=== PATIENT | female | born 1985 | race Caucasian/White ===

== ENCOUNTER 2022-11-04 09:58 | Outpatient (CLI) | payer BC, SELFPAY ==
[2022-11-04 14:27] LABS: Strep A DNA Probe* NOT DETECTED (Not Detectd)
[2022-11-04 14:38] LABS: SARS PCR* Negative SARS-CoV-2 (Negative)
== END 2022-11-04 09:59 | disposition home or self-care (01) ==
PROVIDERS: PCP Family Medicine; Visit Provider Nurse Practitioner Family
DX: J02.9 Acute pharyngitis, unspecified (principal); J06.9 Acute upper respiratory infection, unspecified
CPT/HCPCS: 87635; 87651

== ENCOUNTER 2023-02-23 09:53 | Outpatient (CLI) | payer BC, SELFPAY | END 2023-02-23 09:54 | disposition home or self-care (01) | PROVIDERS: PCP Family Medicine; Visit Provider Registered Nurse | DX: Z01.419 Encounter for gynecological examination (general) (routine) without abnormal findings (principal); R63.5 Abnormal weight gain; R53.83 Other fatigue; Z13.6 Encounter for screening for cardiovascular disorders | CPT/HCPCS: 80053; 80061; 84443 ==

== ENCOUNTER 2023-03-28 09:32 | Outpatient (CLI) | payer BC, SELFPAY | END 2023-03-28 09:33 | disposition home or self-care (01) | LOC: NFLDREF 04-01 11:57 | PROVIDERS: PCP Family Medicine; Referring Provider Family Medicine; Visit Provider Registered Nurse | DX: R74.8 Abnormal levels of other serum enzymes (principal) | CPT/HCPCS: 84450; 84460 ==

== ENCOUNTER 2023-12-07 15:17 | Outpatient (CLI) | payer BC, SELFPAY ==
--- OUTSIDE RECORDS SUMMARY | 2023-12-07 15:21 | XMS_ITS | Clinical Summary ---
Author Organization [facility] Address [place], [place] [address] Care Team Providers Care Computer Information Science Professor Name Role Phone , No Primary Primary Care Provider Unavailabl e , No Primary Unavailable Unavailable Allergies Active Allergy Reactions Criticality Noted Date Comments Unlisted Allergen (Include Detail In Comments) 08/07/2008 Seasonal- pollens, molds Medications No known medications Immunizations Name Administration Dates Next Due COVID-19 vaccine (Moderna 10 0mcg/0.5mL) PAWEL BARILLAS 09/16/2020,08/19/2020 Human Papilloma Virus Vaccine 12/02/2008, 009,05/29/2007 10/07/2008 Td (Age >=7 Years) 03/24/2006 Tdap 08/07/2008 Family History Medical History Relation Name Comments Good Health Father Good Health Mother Relation Name Status Comments Father Alive Mother Alive Social History Tobacco Use Types Packs/Day Years Used Date Smoking Tobacco: Never Alcohol Use Standard Drinks/Week Comments Yes 0 (1 standard drink = 0.6 oz pur e alcohol) social Sex and Gender Information Value Date Recorded Sex Assigned at Not on file Gender Identity Not on file Sexual Orientation Not on file Obstetrics History Para Term AB IAB SAB Ectopic Multiple Livin g Live Births 0 0 0 0 0 0 0 0 0 0 Last Filed Vital Signs Vital Sign Reading Time Taken Comments Blood Pressure 110/70 08/07/2008 4:33 PM CDT Pulse 62 08/07/2008 4:33 PM CDT Temperature 36.2 ??C (97.2 ??F) 06/21/2007 8:33 AM CS T Respiratory Rate - - Oxygen Saturation - - Inhaled Oxygen Concentration - - Weight 68.9 kg (152 lb) 08/07/2008 4:33 PM CDT Height 168.9 cm (5' 6.5) 08/07/2008 4:33 PM CDT Body Mass Index 24.17 08/07/2008 4:33 PM CDT Plan of Treatment Health Maintenance Due Date Last Done Comments Depression screening for age 12+ 1996 HIV for age 15-65 08/27/1999 BMI (ht and wt on same day) for age 18+ 2002 Hepatitis C screening for age 18-79 2002 Tetanus booster 08/07/2018 08/07/2008, 03/24/2006 COVID-19 vaccine series (2022- season) 2023 09/16/2020, 08/19/2020 Influenza for age 9-49 01/15/2024 Pap test for age 21-65 02/23/2026 , 02/23/2023, 12/13/2017, Additional history exists Tdap Completed 08/07/2008 Pneumococcal series for age 6-64 Aged Out No longer eligible based on patient's age to complete this topic Procedures Procedure Name Priority Date/Time Associated Diagnosis Comments HPV THIN PREP Routine 02/23/2023 12:00 PM CDT from Last 3 Months or Most Recently Relevant to Health Maintenance Results * HPV HIGH RISK (02/23/2023 12:00 PM CDT) TYPE 16 Negative Negative 02/25/2023 5:01 PM CDT [facility] TYPE 18 Negative Negative 02/25/2023 5:01 PM CDT [facility] OTHER HIGH RISK TYPES Negative Negative 02/25/2023 5:01 PM CDT [facility] Other (Cervical) 02/23/2023 12:00 PM CDT 02/23/2023 5:12 PM CDT Narrative [facility] - 02/25/2023 5:01 PM CDT HPV types 16, 18, 31, 33, 35, 39, 45, 51, 52, 56, 58, 59, 66 and 68 DNA were undetectable or below the pre-set threshold. Methodology: Marsha Dash 4800 HPV Test Che Funez NP [facility] [address] [place] [id number], from Last 3 Months or Most Recently Relevant to Health Maintenance Care Teams Computer Information Science Professor Relationship Specialty Start Date End Date , No Primary . PCP - General 08/14/20 , No Primary . 08/14/20
== END 2023-12-07 15:18 | disposition home or self-care (01) ==
PROVIDERS: PCP Family Medicine; Visit Provider Family Medicine
DX: G25.81 Restless legs syndrome (principal); R63.5 Abnormal weight gain
CPT/HCPCS: 80048; 82728; 83540; 83550; 83735

== ENCOUNTER 2024-12-27 08:01 | Outpatient (CLI) | payer BC, SELFPAY ==
--- NOTE | 2024-12-27 08:15 | CRLHL7_ITS ---
For Patients: As a result of the Cures Act, medical imaging exams and procedure reports are released immediately into your electronic medical record. You may view this report before your referring provider. If you have questions, please contact your health care provider. INDICATION: BILATERAL SCREENING MAMMOGRAM, ASYMTOMATIC 39 Y/O FEMALE COMPARISON: BASELINE TECHNIQUE: Digital mammogram in CC and MLO projections including computer-aided detection (CAD) and tomosynthesis. BREAST COMPOSITION: The breasts are heterogeneously dense, which may obscure small masses. FINDINGS: No suspicious findings. ASSESSMENT: BI-RADS 1 Negative RECOMMENDATION: Annual screening mammogram. A lay language report of this examination will be provided to the patient. Dictated by: Surendra Hamilton MD @ 12/27/2024 10:17:18 (Electronically Signed)
== END 2024-12-27 08:02 | disposition home or self-care (01) ==
LOC: MAMMO 08:01
PROVIDERS: PCP Family Medicine; Visit Provider Family Medicine
DX: Z12.31 Encounter for screening mammogram for malignant neoplasm of breast (principal); R92.333 Mammographic heterogeneous density, bilateral breasts
CPT/HCPCS: 77063; 77067